=== PATIENT | female | born 1975 | race Caucasian/White ===

== ENCOUNTER 2018-10-17 19:43 | Emergency (ER) | payer OTHER ==
--- NOTE | 2018-10-17 20:13 | UC ---
General HPI - HPI Summary HPI Summary: Pt presents to wit 3 siblings - visiting from [facility]. Dad called today to say his colleagues children have hand/foot/mouth. Mom got concerned because the family is a camp at [employer] and doesn't want to expose others. No family members sick. No fever, hand, feet or mouth lesions. Eating normally no complaints meds reviewed not immunizations UTD - History of Current Complaint Chief Complaint: UCGI Stated Complaint: HOOF AND MOUTH Hx Obtained From: Patient - Allergy/Home Medications Allergies/Adverse Reactions: Allergies Allergy/AdvReac Type Severity Reaction Status Date / Time No Known Allergies Allergy Verified 10/17/18 20:18 Home Medications: Home Medications Cholecalciferol (Vitamin D3) [Vitamin D3] 1,000 unit PO 10/17/18 [History] D-Mannose 1 gm MC 10/17/18 [History] Docosahexanoic Acid [Dha Rose 3] 100 mg PO 10/17/18 [History] L.acidoph,Paracasei, B.lactis [Probiotic] 1 each PO 10/17/18 [History] Multivitamin [Once Daily] 1 each PO 10/17/18 [History] Progesterone, Micronized [Progesterone] 200 mg PO 10/17/18 [History] Thyroid,Pork [Mineral Thyroid] 30 mg PO 10/17/18 [History] Ubiquinol 100 mg PO 10/17/18 [History] PMH/Surg Hx/FS Hx/Imm Hx Previously Healthy: Yes - Surgical History Surgical History: Yes - dental - Family History Known Family History: Positive: Non-Contributory - Social History Occupation: Employed Full-time Lives: With Family Alcohol Use: None Substance Use Type: Marijuana Review of Systems All Other Systems Reviewed And Are Negative: Yes Constitutional: Positive: Negative Skin: Positive: Negative Eyes: Positive: Negative ENT: Positive: Negative Respiratory: Positive: Negative Cardiovascular: Positive: Negative Gastrointestinal: Positive: Negative Physical Exam - Summary Physical Exam Summary: Vital Signs Reviewed: Yes A+Ox3, no distress Eyes: Conjunctiva Clear, YOLETTE. EOM intact and full ENT: Hearing grossly normal TM x 2 clear, mmoist, uvula midline, no exudate, no erythema posterior to #32 tooth pt with small appearing bloodbliser - states sleeps with a mouth guard for grinding - pinched soft tissue, no intraoral vesicles, painful lesions Neck: Positive: Supple Respiratory: Positive: No respiratory distress, No accessory muscle use + CTA throughout no w/r Cardiovascular: RRR nl s1, s2 no m/r CBT <2 sec abd soft + BS nt/nd no guarding, no distension Musculoskeletal Exam: NEWBERRY x 4 without difficulty Strength Intact, ROM Intact Neurological: Positive: Alert, + sensation throughout Psychological: Positive: Normal Response To kier drier Skin: Positive: no rash, no ecchymosis, no lesions Triage Information Reviewed: Yes Course/Dx - Course Course Of Treatment: Pt presets for evaluation following possile xposure to hand, foot mouth > 1 week ago - pt without sx no complaints VSS normal exam reviewed viruses supportive care - Diagnoses Provider Diagnosis: Worried well Discharge - Sign-Out/Discharge Documenting (check all that apply): Patient Departure All imaging exams completed and their final reports reviewed: No Studies - Discharge Plan Condition: Stable Disposition: HOME Patient Education Materials: Hand, Foot, and Mouth Disease (ED), Normal Exam ( ED) Referrals: No Primary Care Phys,NOPCP [Primary Care Provider] - Additional Instructions: The doctor did not identify anything concerning on your examination today It is recomended you stay hdyrated, avoid excess caffeine Do no share eating or drinking utensils if you develop fevers, take ibuprofen (Advil, Motrin) and Tylenol every 3 hours for pain I have included instructions for hand, foot, and mouth in for your information - Billing Disposition and Condition Condition: STABLE Disposition: Home
[2018-10-17 20:18] VITALS: BP 112/76
== END 2018-10-17 21:44 | disposition home or self-care (01) ==
LOC: UCEAST 19:43
DX: Z20.89 Contact with and (suspected) exposure to other communicable diseases (principal)
CPT/HCPCS: 99202; G0463